=== PATIENT | female | born 2000 | race Hispanic/Latino ===

== ENCOUNTER 2022-03-03 02:45 | Emergency (ER) | payer MEDICAID | END 2022-03-03 02:50 | disposition left against medical advice (07) | LOC: ED 02:45 | DX: O46.90 Antepartum hemorrhage, unspecified, unspecified trimester (principal); Z53.21 Procedure and treatment not carried out due to patient leaving prior to being seen by health care provider; Z3A.00 Weeks of gestation of pregnancy not specified ==